=== PATIENT | female | born 1960 | race Caucasian/White ===

== ENCOUNTER 2016-03-10 12:57 | Emergency (ER) | payer SELFPAY ==
[2016-03-10 13:06] VITALS: BP 151/82
--- NOTE | 2016-03-10 13:11 | ER Document Report ---
ED Medical Screen (RME) - General Stated Complaint: LEFT KNEE PAIN Mode of Arrival: Wheelchair Information source: Patient Notes: pt presents to the ED with c/o left knee pain, possible twisted, hurts to ambulate. I have greeted and performed a rapid initial assessment of this patient. A comprehensive ED assessment and evaluation of the patient, analysis of test results and completion of the medical decision making process will be conducted by additional ED providers. - Related Data Allergies/Adverse Reactions: No Known Allergies Allergy (Verified 03/10/16 13:10) Physical Exam - Vital signs Vitals: Temp Pulse Resp BP Pulse Ox 98.0 F 87 20 151/82 H 94 03/10/16 13:04 03/10/16 13:04 03/10/16 13:04 03/10/16 13:04 03/10/16 13:04 Course - Vital Signs Vital signs: Temp Pulse Resp BP Pulse Ox 98.0 F 87 20 151/82 H 94 03/10/16 13:04 03/10/16 13:04 03/10/16 13:04 03/10/16 13:04 03/10/16 13:04
--- NOTE | 2016-03-10 13:49 | ER Document Report ---
HPI - HPI Patient complains to provider of: twisted left knee Onset: This morning Onset/Duration: Sudden Pain Level: 5 Context: 55 year old had been having pain posterior left knee for a while, today she had left foot planted and twisted knee causing a pop and pain in medial posterior left knee. Has crutches and walker at home. Works in dentist office. Associated Symptoms: None Exacerbated by: Movement, Walking Relieved by: Denies Similar symptoms previously: No Recently seen / treated by doctor: No - ROS ROS below otherwise negative: Yes Systems Reviewed and Negative: Yes All other systems reviewed and negative - DERM Skin Color: Normal Past Medical History - General Information source: Patient - Social History Smoking Status: Never Smoker Chew tobacco use (# tins/day): No Frequency of alcohol use: None Drug Abuse: None Lives with: Family Family History: Reviewed & Not Pertinent Patient has suicidal ideation: No Patient has homicidal ideation: No - Medical History Medical History: Negative Surgical Hx: Negative Vertical Provider Document - CONSTITUTIONAL Agree With Documented VS: Yes Exam Limitations: No Limitations General Appearance: No Apparent Distress - INFECTION CONTROL TRAVEL OUTSIDE OF THE [place] IN LAST 30 DAYS: No - HEENT HEENT: Normocephalic - NECK Neck: Supple - RESPIRATORY O2 Sat by Pulse Oximetry: 94 - MUSCULOSKELETAL/EXTREMETIES Musculoskeletal/Extremeties: Tender - posterior medial left knee tendon, no effusion , ecchymosis or swelling,. N/V distally intact - NEURO Level of Consciousness: Awake, Alert Motor/Sensory: No Motor Deficit, No Sensory Deficit - DERM Integumentary: Warm, Dry, No Rash Course - Re-evaluation Re-evalutation: 03/10/16 14:07 X-ray shows arthritis no effusion. 03/10/16 14:15 Because of patient's short femurs the knee immobilizer will not works around using a padded Fausto wrap - Vital Signs Vital signs: Temp Pulse Resp BP Pulse Ox 98.0 F 87 20 151/82 H 94 03/10/16 13:04 03/10/16 13:04 03/10/16 13:04 03/10/16 13:04 03/10/16 13:04 Procedures - Immobilization Left Knee Time completed: 14:14 Pre-Proc Neuro Vasc Exam: Normal Discharge - Discharge Clinical Impression: Arthritis Left knee sprain Qualifiers: Encounter type: initial encounter Involved ligament of knee: unspecified ligament Qualified Code(s): S83.92XA - Sprain of unspecified site of left knee, initial encounter Condition: Good Disposition: HOME, SELF-CARE Instructions: Use of Crutches ([facility]), Sprained Knee ([facility]), Fausto Wrap ([facility]) Additional Instructions: elevate use your crutches use crutches see orthopedic doctor for follow up this week to er if worse Prescriptions: Hydrocodone Bit/Acetaminophen [Hydrocodon-Acetaminophen 5-325] 1 each PO Q4HP PRN #15 tablet PRN Reason: Forms: Return to Work Referrals: JOEL CHACON MD [ACTIVE STAFF] - 03/12/16
== END 2016-03-10 14:31 | disposition home or self-care (01) ==
LOC: ER 12:57
DX: S83.92XA Sprain of unspecified site of left knee, initial encounter (principal); X50.0XXA Overexertion from strenuous movement or load, initial encounter; M17.12 Unilateral primary osteoarthritis, left knee
CPT/HCPCS: 99283

== ENCOUNTER 2016-11-13 12:58 | Emergency (ER) | payer SELFPAY ==
--- NOTE | 2016-11-13 13:04 | ER Document Report ---
ED General - General Stated Complaint: WEAKNESS Time Seen by Provider: 11/13/16 13:03 Mode of Arrival: Ambulatory Information source: Patient Notes: 56-year-old post menopausal female felt lightheaded without vertigo this morning when she stood up. She has had diarrhea since Tuesday. It resolved but started again yesterday. She took her blood pressure at home and the systolic was 98 which is low for her, and the repeat was 85 systolic while she was supine without lightheadedness. No blood or mucous. No abdominal pain at this time. No headache or chest pain. No hx of crohns, colitis, or divertic. No recent travel of hx of c diff. She takes low dose lisinopril for hypertension but has not had it for 1 week. EMS gave her 500ml bolus and bp systolic is 111 at this time. TRAVEL OUTSIDE OF THE [place] IN LAST 30 DAYS: No - Related Data Allergies/Adverse Reactions: No Known Allergies Allergy (Verified 11/13/16 13:15) Past Medical History - General Information source: Patient - Social History Smoking Status: Never Smoker Frequency of alcohol use: None Drug Abuse: None Occupation: not working Family History: Reviewed & Not Pertinent - Medical History Medical History: Negative Renal/ Medical History: Denies: Hx Peritoneal Dialysis Past Surgical History: Reports: Hx Cholecystectomy - Immunizations Hx Diphtheria, Pertussis, Tetanus Vaccination: Yes Review of Systems - Review of Systems Constitutional: No symptoms reported EENT: No symptoms reported Cardiovascular: No symptoms reported Respiratory: No symptoms reported Gastrointestinal: See HPI Genitourinary: No symptoms reported Female Genitourinary: No symptoms reported Musculoskeletal: No symptoms reported Skin: No symptoms reported Hematologic/Lymphatic: No symptoms reported Neurological/Psychological: See HPI Physical Exam - Vital signs Vitals: Resp 18 11/13/16 13:00 Interpretation: Normal - General General appearance: Appears well, Alert - HEENT Head: Normocephalic, Atraumatic Eyes: Normal Conjunctiva: Normal Pupils: PERRL Mucous membranes: Dry Pharynx: No: Erythema Neck: Supple. No: Lymphadenopathy - Respiratory Respiratory status: No respiratory distress Chest status: Nontender Breath sounds: Normal Chest palpation: Normal - Cardiovascular Rhythm: Regular Heart sounds: Normal auscultation Murmur: No - Abdominal Inspection: Normal Distension: No distension Bowel sounds: Normal Tenderness: Nontender Organomegaly: No organomegaly - Back Back: Normal, Nontender. No: CVA tenderness - Extremities General upper extremity: Normal inspection, Nontender, Normal color, Normal ROM , Normal temperature General lower extremity: Normal inspection, Nontender, Normal color, Normal ROM , Normal temperature, Normal weight bearing. No: Lito's sign - Neurological Neuro grossly intact: Yes Cognition: Normal Orientation: AAOx4 Presho Coma Scale Eye Opening: Spontaneous Deepti Coma Scale Verbal: Oriented Presho Coma Scale Motor: Obeys Commands Presho Coma Scale Total: 15 Speech: Normal Motor strength normal: LUE, RUE, LLE, RLE Sensory: Normal - Psychological Associated symptoms: Normal affect, Normal mood - Skin Skin Temperature: Warm Skin Moisture: Dry Skin Color: Normal Course - Vital Signs Vital signs: Temp Pulse Resp BP Pulse Ox 98.0 F 18 122/78 100 11/13/16 16:00 11/13/16 16:00 11/13/16 16:00 11/13/16 16:00 - Laboratory Result Diagrams: 11/13/16 13:06 11/13/16 13:06 Laboratory results interpreted by me: 11/13/16 11/13/16 11/13/16 13:06 13:06 15:39 Hct 33.8 L Monocytes % 13.4 H BUN 30 H Creatinine 1.47 H Est GFR ( Amer) 44 L Est GFR (Non-Af Amer) 37 L Urine Ketones TRACE H Ur Leukocyte Esterase TRACE H Urine Ascorbic Acid 40 H Discharge - Discharge Clinical Impression: Dehydration, lightheadedness resolved Diarrhea Qualifiers: Diarrhea type: unspecified type Qualified Code(s): R19.7 - Diarrhea, unspecified Condition: Good Disposition: HOME, SELF-CARE Instructions: Dehydration ([facility]), Diarrhea, Nonspecific ([facility]), Dizziness ([facility]) Additional Instructions: Drink plenty of fluids Advance diet as tolerated Eat yogurt with active cultures Return to the emergency room for any worsening of symptoms or recurrence of symptoms or any concerns Please complete the patient satisfaction survey if you get one, and return it.. If you do not receive a survey, then you can go to the [facility] website, [email or web address] and place your comments about your very good care. Thank you very much. It was a pleasure being your medical provider today. Referrals: NEYMAR KITCHEN MD [HONORARY] - Follow up as needed
[2016-11-13] MEDS ORDERED: NORMAL SALINE 1000 ML 1,000 ML IV ONE ×2 (13:15→14:40)
[2016-11-13 13:22] LABS: ABSOLUTE BASOPHILS # (AUTO) 0.1 10^3/uL (0.0-0.2); ABSOLUTE EOSINOPHILS # (AUTO) 0.1 10^3/uL (0.0-0.6); ABSOLUTE LYMPHOCYTES (AUTO) 1.9 10^3/uL (0.5-4.7); ABSOLUTE MONOCYTES (AUTO) 1.4 10^3/uL (0.1-1.4); ABSOLUTE NEUT (AUTO) 6.7 10^3/uL (1.7-8.2); BASOPHILS % (AUTO) 0.7 % (0-2); EOSINOPHILS % (AUTO) 0.6 % (0-6); HEMATOCRIT 33.8 % (36.0-47.0); HGB HCT DIFFERENCE 2.2; LYMPHOCYTES % (AUTO) 19.2 % (13-45); MEAN CORPUSCULAR HEMOGLOBIN 31.4 pg (27.0-33.4); MEAN CORPUSCULAR HGB CONC 35.5 g/dL (32.0-36.0); MEAN CORPUSCULAR VOLUME 88 fl (80-97); MONOCYTES % (AUTO) 13.4 % (3-13); RED BLOOD COUNT 3.82 10^6/uL (3.72-5.28); RED CELL DISTRIBUTION WIDTH 13.3 % (11.5-14.0); SEGMENTED NEUTROPHILS % (AUTO) 66.1 % (42-78); WHITE BLOOD COUNT 10.1 10^3/uL (4.0-10.5)
[2016-11-13 13:38] LABS: ALANINE AMINOTRANSFERASE 25 U/L (9-52); ALBUMIN 3.8 g/dL (3.5-5.0); ALKALINE PHOSPHATASE 80 U/L (38-126); ANION GAP 10 (5-19); ASPARTATE AMINO TRANSFERASE 21 U/L (14-36); BILIRUBIN,DIRECT 0.4 mg/dL (0.0-0.4); BILIRUBIN,TOTAL 0.4 mg/dL (0.2-1.3); BLOOD UREA NITROGEN 30 mg/dL (7-20); CALCIUM 8.9 mg/dL (8.4-10.2); CARBON DIOXIDE 26 mmol/L (22-30); CHLORIDE 101 mmol/L (98-107); CREATININE RESULT 1.47 mg/dL (0.52-1.25); GLUCOSE 93 mg/dL (75-110); POTASSIUM 3.9 mmol/L (3.6-5.0); TOTAL PROTEIN 7.3 g/dL (6.3-8.2)
[2016-11-13 15:55] LABS: APPEARANCE,URINE SLIGHTLY-CLOUDY; BILIRUBIN,URINE NEGATIVE (NEGATIVE); GLUCOSE, URINE NEGATIVE (NEGATIVE); KETONES,URINE TRACE mg/dL (NEGATIVE); LEUKOCYTE ESTERASE,URINE TRACE (NEGATIVE); NITRITE,URINE NEGATIVE (NEGATIVE); PROTEIN,URINE NEGATIVE (NEGATIVE); URINE SPECIFIC GRAVITY 1.006; UROBILINOGEN,URINE NEGATIVE mg/dL (<2.0)
[2016-11-13 16:10] VITALS: BP 122/78
== END 2016-11-13 16:10 | disposition home or self-care (01) ==
LOC: ER 12:58
DX: E86.0 Dehydration (principal); R42 Dizziness and giddiness; R19.7 Diarrhea, unspecified; R53.1 Weakness
CPT/HCPCS: 99284; 36415; 87086; 85025; 80053; 81001; J7030

== ENCOUNTER → 2018-07-04 | Outpatient (CLI) | payer SELFPAY ==
[2018-07-04 10:48] LABS: T.VAGINALIS (WET MOUNT) NO TRICHOMONAS SEEN; YEAST (WET MOUNT) NO YEAST SEEN
[2018-07-04 10:49] LABS: BACTERIA (WET MOUNT) 3+ BACTERIA SEEN; EPITHELIALS (WET MOUNT) 3+ EPITHELIALS SEEN; RBCS (WET MOUNT) 1+ RBCS SEEN; WBCS (WET MOUNT) 1+ WBCS SEEN
== END ==
LOC: LAB 10:45
PROVIDERS: ATTEND Nurse Practitioner Family
DX: N89.8 Other specified noninflammatory disorders of vagina (principal)
CPT/HCPCS: 87210